=== PATIENT | female | born 1995 | race Caucasian/White ===

== ENCOUNTER → 2025-04-02 | Outpatient (CLI) | payer SELFPAY, OTHER ==
--- NOTE | 2025-04-02 10:39 | US_ITS ---
PROCEDURE: GALLBLADDER 04/02/2025 REASON FOR EXAM: RUQ ABD PAIN Intermittent right upper quadrant pain. COMPARISON: None FINDINGS: Liver: Diffusely echogenic suggesting fatty infiltration. Gallbladder: Sludge is seen within the gallbladder lumen. The gallbladder wall is not thickened and measures 1.8 mm. Common bile duct: Normal measuring 3.2 mm . Pancreas: Normal Other: Visualized portions of the right kidney are unremarkable. No right upper quadrant ascites. US/Gallbladder IMPRESSION: Fatty infiltration of the liver. Small amount of sludge is seen along the dependent portion of the gallbladder l josue. Reading Location: [facility]
== END | disposition home or self-care (01) ==
PROVIDERS: PCP Family Medicine
DX: R10.11 Right upper quadrant pain (principal)
CPT/HCPCS: 76705

== ENCOUNTER → 2025-05-01 | Outpatient (CLI) | payer OTHER, SELFPAY ==
--- NOTE | 2025-05-01 11:28 | NM_ITS ---
PROCEDURE: HEPATOBILLIARY IMG W/PHARM INT 05/01/2025 REASON FOR EXAM: RUQ ABD PAIN TECHNIQUE: Intravenous Choletec with planar imaging of the abdomen. 1.7 mcg Kinevac intravenously approximately 60 minutes after the radiopharmaceutical with additional anterior imaging and a region of interest drawn around the gallbladder to calculate a time-activity curve. RADIOPHARMACEUTICAL: Mebrofenin DOSE 5.5mCi COMPARISON: None FINDINGS: There is good uptake of the radiopharmaceutical by the liver. Normal gallbladder visualization with the gallbladder identified by 45 minutes. Gallbladder Ejection Fraction: 72 % (Normal is >35%) NM/Hepatobilliary Img w/Pharm Int IMPRESSION: Normal gallbladder ejection fraction. Reading Location: [place] [id number]
== END | disposition home or self-care (01) ==
LOC: NM 11:26
PROVIDERS: PCP Family Medicine
DX: R10.11 Right upper quadrant pain (principal)
CPT/HCPCS: 78227; A9537; J2805